=== PATIENT | male | born 1955 | race Two or more races ===

== ENCOUNTER 2020-09-15 05:40 | Day surgery (SDC) | payer OTHER | END 2020-09-15 21:13 | disposition home or self-care (01) | LOC: CIR.AMB 05:40 | PROVIDERS: ATTEND Orthopaedic Surgery Sports Medicine | DX: S83.421A Sprain of lateral collateral ligament of right knee, initial encounter (principal); M23.261 Derangement of other lateral meniscus due to old tear or injury, right knee; M23.231 Derangement of other medial meniscus due to old tear or injury, right knee; M23.41 Loose body in knee, right knee; Z20.822 Contact with and (suspected) exposure to COVID-19 ==